=== PATIENT | male | born 1945 | race Caucasian/White ===

== ENCOUNTER 2018-08-22 10:01 | Inpatient (IN) | payer MEDICARE, OTHER ==
[2018-08-18 18:26] VITALS: BMI 33.1
[~2018-08-22] VITALS: Ht 179.1 cm; Wt 104.8 kg
[2018-08-22] VITALS (19 sets, daily range): BP systolic 95–149; BP diastolic 76–91; PULSE 62–104; RESP 12–26; Ht 179.1 cm; Wt 104.8 kg
[~2018-08-22 10:01] MED LIST: CEFAZOLIN 2 GM/50 ML (PMX) 50 ML IVPB ONE; LACTATED RINGER'S 1,000 ML IV SCH
[2018-08-22] MEDS ORDERED: METO-335 PO (10:49)
[2018-08-22] MEDS ORDERED: RIVA20TA5 PO (10:50)
[2018-08-22] MEDS ORDERED: DILT180C94 PO (10:51)
[2018-08-22] MEDS ORDERED: CHLO25TA2 PO (10:54)
[2018-08-22] MEDS ORDERED: EZET10TA31 PO (10:54)
[2018-08-22] MEDS ORDERED: ZOLP10TA5 PO (10:55)
--- NOTE | 2018-08-22 12:05 | HPN ---
Date/Time of Note Date/Time of Note DATE: 08/22/18 TIME: 12:04 Interval H&P Admission Note Pt. seen H&P reviewed: No system changes RICIKE DAHL MD Aug 22, 2018 12:05
[2018-08-22] MEDS ORDERED: BISACODYL 10 MG SUPP PR PRN (12:30)
[2018-08-22] MEDS ORDERED: ACETAMINOPHEN 325 MG TAB PO PRN (12:30)
[2018-08-22] MEDS ORDERED: CYCLOBENZAPRINE 10 MG TAB PO PRN (12:30)
[2018-08-22] MEDS ORDERED: ONDANSETRON 4 MG INJ IV PRN ×2 (12:30→19:00)
[2018-08-22] MEDS ORDERED: DIPHENHYDRAMINE 50 MG INJ IV PRN ×2 (12:30→19:00)
[2018-08-22] MEDS ORDERED: NALOXONE (0.4 MG/ML) INJ IV PRN (12:30)
[2018-08-22] MEDS ORDERED: AL HYDROX/MG HYDROX/SIMETH 30 ML CUP PO PRN (12:30)
[2018-08-22] MEDS ORDERED: DIPHENHYDRAMINE 25 MG CAP PO PRN (12:30)
[2018-08-22] MEDS ORDERED: CEPASTAT LOZENGE MT PRN (12:30)
[2018-08-22] MEDS ORDERED: HYDROmorphONE 0.5 MG/0.5 ML SYG IV PRN (12:30)
[2018-08-22] MEDS ORDERED: THROMBIN 5000 UNIT VIAL ONE ×2 (12:41→13:58)
[2018-08-22] MEDS ORDERED: BUPIVACAINE 0.5%/EPI (SDV) 30 ML INJ ONE (12:41)
[2018-08-22] MEDS ORDERED: GELATIN SIZE 100 SPONGE ONE (12:42)
[2018-08-22] MEDS ORDERED: CA CHLORIDE 10% 10 ML SYRINGE ONE (12:42)
[2018-08-22] MEDS ORDERED: HEPARIN 1000 UNITS/ML 10 ML INJ ONE ×2 (12:43→12:45)
[2018-08-22] MEDS ORDERED: POLYMYXIN/BACITRACIN 1L IRRIG ONE (12:44)
--- NOTE | 2018-08-22 12:54 | PREAC ---
Date/Time of Note Date/Time of Note DATE: 08/22/18 TIME: 12:51 Anesthesia Eval and Record Evaluation Time Pre-Procedure Interview DATE: 08/22/18 TIME: 12:51 Age 73 Sex male NPO: 8 hrs Preoperative diagnosis L4-L5 spondylolysis and stenosis Planned procedure L4-L5 decompression and fusion Past Medical History Past Medical History: Includes Cardio: HTN, Arrythmia GI: Morbid obesity Surgery & Anesthesia Issues No known issue Meds Anticoagulation: No Beta Yen within 24 hr: Yes Reported Medications Zolpidem Tartrate* (Zolpidem Tartrate*) 10 Mg Tablet, 10 MG PO QHS PRN for INSOMNIA, #30 TAB 08/22/18 Ezetimibe* (Zetia*) 10 Mg Tablet, 10 MG PO HS, TAB 08/22/18 Chlorthalidone* (Chlorthalidone*) 25 Mg Tablet, 12.5 MG PO DAILY, TAB 08/22/18 Diltiazem Hcl* (Diltiazem XT) 180 Mg Capsule.er, 180 MG PO QPM, #30 CAP 08/22/18 Rivaroxaban* (Xarelto*) 20 Mg Tablet, 20 MG PO WITH DINNER, TAB 08/22/18 Metoprolol Succinate* (Toprol XL*) 25 Mg Tab.sr.24h, 12.5 MG PO QAM, #30 TAB 08/22/18 Current Medications Lactated Ringer's 1,000 ml @ 0 mls/hr Q0M IV Last administered on 08/22/18at 11:06; Admin Dose 30 MLS/HR; Start 08/22/18 at 06:00; Stop 08/22/18 at 23:00 Potassium Chloride/Dextrose/ Sod Cl 1,000 ml @ 100 mls/hr Q10H IV ; Start 08/22/18 at 12:05 Acetaminophen/ Hydrocodone Bitart ([place] (10/325)) 1 tab Q4H PRN PO .PAIN 1-5; Start 08/25/18 at 10:00 Acetaminophen/ Hydrocodone Bitart ([place] (10/325)) 2 tab Q4H PRN PO .PAIN 6-10; Start 08/25/18 at 09:30 Hydromorphone HCl (Dilaudid) 0.2 mg Q1H PRN IV .BREAKTHROUGH PAIN; Start 08/22/18 at 12:30 Cefazolin Sodium 50 ml @ 100 mls/hr Q8H IVPB ; Start 08/22/18 at 14:00; Stop 08/23/18 at 06:29 Ondansetron HCl (Zofran Inj) 4 mg Q6H PRN IV NAUSEA/VOMITING; Start 08/22/18 at 12:30 Bisacodyl (Dulcolax Supp) 10 mg DAILY PRN MA .CONSTIPATION; Start 08/22/18 at 12:30 Docusate Sodium (Colace) 100 mg BID PO ; Start 08/22/18 at 21:00 Al Hydrox/Mg Hydrox/Simethicone (Mag-Al Plus) 15 ml Q6H PRN PO .CONSTIPAT ION/DYSPEPSIA; Start 08/22/18 at 12:30 Acetaminophen (Tylenol Tab) 650 mg Q4H PRN PO LUIS OR TEMP GREATER THAN 101.3F; Start 08/22/18 at 12:30 Cyclobenzaprine HCl (Flexeril) 5 mg TID PRN PO .MUSCLE SPASM; Start 08/22/18 at 12:30 Phenol (Cepastat Lozenge) 1 lozenge PRN PRN MT .SORE THROAT; Start 08/22/18 at 12:30 Diphenhydramine HCl (Benadryl) 25 mg Q6H PRN PO .ITCHING; Start 08/22/18 at 12:30 Diphenhydramine HCl (Benadryl) 25 mg Q6H PRN IV .ITCHING; Start 08/22/18 at 12:30 Naloxone HCl (Narcan) 0.2 mg Q2M PRN IV .RR 8 BREATHS/MIN OR LESS; Start 08/22/18 at 12:30 Hydromorphone HCl (Dilaudid SAFEKEEPING CLERK) SAFEKEEPING CLERK to be started in PACU Q4PCA IV ; Start 08/22/18 at 12:30; Status Future Hold Miscellaneous Information 1. Hold SAFEKEEPING CLERK at 1,000... SAFEKEEPING CLERK IV ; Start 08/22/18 at 12:30 Meds reviewed: Yes Allergies Coded Allergies: No Known Allergy (Unverified , 08/22/18) Allergies Reviewed: Yes Labs/Studies Labs Reviewed: Reviewed by anesthesiologist test: N/A Studies: ECG Pre-procedure Exam Last vitals Vital Signs Date Temp Pulse Resp B/P (MAP) Pulse Ox O2 O2 Flow FiO2 Time Delivery Rate 08/22/18 97.4 62 16 127/80 97 10:51 (96) Airway: Adequate mouth opening, Adequate thyromental dist Mallampati: Mallampati III Teeth: Normal Lung: Normal Heart: Normal ASA Physical Status ASA physical status: 3 Emergency: None Planned Anesthetic General/MAC: ETT Planned Pain Management Parenteral pain med, Local by surgeon Pre-operative Attestations Prior to commencing anesthesia and surgery, the patient was re-evaluated, there was verification of: *The patient's identity *The results of appropriate recent lab work and preoperative vital signs *The above evaluation not changing prior to induction *Anesthetic plan, risk benefits, alternative and complications discussed with patient/family; questions answered; patient/family understands, accepts and wishes to proceed. CAMRON VILLEGAS MD Aug 22, 2018 12:54
[2018-08-22] MEDS ORDERED: CEFAZOLIN 1 GM INJ ONE ×4 (13:00→18:23)
[2018-08-22] MEDS ORDERED: SEVOFLURANE 15 MIN ONE (13:00)
[2018-08-22] MEDS ORDERED: MIDAZOLAM 1 MG/ML 2 ML INJ ONE (13:02)
[2018-08-22] MEDS: CEFAZOLIN 1 GM/50 ML (PMX) 50 ML IVPB SCH ×2 (13:10→22:30)
[2018-08-22] MEDS ORDERED: morphine 10 MG INJ ONE (16:10)
[2018-08-22] MEDS ORDERED: ETOMIDATE 20 MG INJ ONE (18:23)
[2018-08-22] MEDS ORDERED: PROPOFOL 20 ML ONE (18:23)
[2018-08-22] MEDS ORDERED: LIDOCAINE 2% (SDV) 5 ML INJ ONE (18:23)
[2018-08-22] MEDS ORDERED: ROCURONIUM 50 MG INJ ONE (18:23)
[2018-08-22] MEDS ORDERED: ONDANSETRON 4 MG INJ ONE (18:24)
[2018-08-22] MEDS ORDERED: FUROSEMIDE 20 MG INJ ONE (18:40)
--- NOTE | 2018-08-22 18:52 | SIPON ---
Date/Time of Note Date/Time of Note DATE: 08/22/18 TIME: 18:51 Operative Report Preoperative Diagnosis Spondylolisthesis Postoperative Diagnosis Spondylolisthesis Operation/Procedure Performed L4-5 fusion Surgeon see signature line assistant manager airside operations Wilfredo Anesthesia: general Estimated blood loss: 250 - 300 ml's Transfusion Required none Specimen Disc Grafts/Implants Cage and screws Complications none RICKIE DAHL MD Aug 22, 2018 18:52
[2018-08-22] MEDS ORDERED: HYDROmorphONE 1 MG/5 ML IV SYRINGE IV PRN ×2 (19:00)
[2018-08-22] MEDS ORDERED: LABETALOL HCL 20MG INJ IV PRN (19:00)
[2018-08-22] MEDS ORDERED: hydrALAzine 20 MG INJ IV PRN (19:00)
[2018-08-22] MEDS ORDERED: METOCLOPRAMIDE 10 MG INJ IV PRN (19:00)
[2018-08-22] MEDS ORDERED: MEPERIDINE 25 MG INJ IV PRN (19:00)
--- NOTE | 2018-08-22 19:00 | PAC ---
Date/Time of Note Date/Time of Note DATE: 08/22/18 TIME: 19:00 Post-Anesthesia Notes Post-Anesthesia Note Last documented vital signs Vital Signs Date Temp Pulse Resp B/P (MAP) Pulse Ox O2 O2 Flow FiO2 Time Delivery Rate 08/22/18 97.4 62 16 127/80 97 10:51 (96) Activity: WNL Respiratory function: WNL Cardiovascular function: WNL Mental status: Baseline Pain reasonably controlled: Yes Hydration appropriate: Yes Nausea/Vomiting absent: Yes Comments BP:118/67, P:92, Spo2:100%, T:98,8 CAMRON VILLEGAS MD Aug 22, 2018 19:00
[2018-08-22] MEDS: HYDROmorphONE 0.2 MG/ML PCA IV SCH (19:18)
[2018-08-22] MEDS: FENTAnyl 50 MCG/ML VIAL IV PRN ×3 (19:27→22:34)
[2018-08-22] MEDS ORDERED: ZOLPIDEM 5 MG TAB PO PRN (19:30)
--- NOTE | 2018-08-22 19:49 | OPR ---
DATE OF OPERATION: 08/22/2018 PREOPERATIVE DIAGNOSES: Unstable L4-L5 degenerative spondylolisthesis and stenosis with radiculopathy and neurogenic claudication. POSTOPERATIVE DIAGNOSES: Unstable L4-L5 degenerative spondylolisthesis and stenosis with radiculopathy and neurogenic claudication. PROCEDURE: 1. Central decompressive laminectomy at L4-L5 with decompression of L4 and L5 nerve roots. 2. Placement of pedicle screws bilaterally at L4 and L5. 3. Carty-Pérez osteotomies bilaterally at L4-5 bilaterally. 4. Transforaminal lumbar interbody fusion at L4-L5. 5. Placement of intervertebral mechanical device. 6. Posterolateral fusion at L4-L5. 7. Use of allograft. 8. Use of autograft. 9. Use of C-arm fluoroscopy with interpretation without radiologist present. 10. Intraoperative neuromonitoring. 11. Use of operative microscope. PRIMARY SURGEON: Bahman Milan MD. SERVICENOW ADMINISTRATOR: Sharona Villalobos PA-C. NEED FOR GRINDER OPERATOR AUTOMATIC: During this spinal surgical procedure, my assistant professor of theater was used to retract and protect the spinal nerves and dural sac. My assistant professor of theater also employed the suction catheters to evacuate blood from the surgical field to improve visualization of the neural structures. The assistant professor of theater was medically necessary to facilitate the completion of the surgery in a safe and expeditious manner. State of [place] regulations, as well as hospital bylaws, preclude the use of non-licensed health care personnel, such as operating room technicians, to perform these functions. IMPLANTS: 1. Neurostructure Palladian 6.5 x 55 mm pedicle screws at L4 and L5 bilaterally with 50 mm colby. 2. Nexxt Matrixx 10 mm banana cage. 3. BioSphere. FINDINGS: Neuromonitoring at the start of the case revealed left L4 amplitude down 30%, bilateral L5 down 40%. At the end of the case, nerve signals returned to normal. The patient had severe stenosis at the L4-L5 level due to facet and ligamentum hypertrophy. The patient's bone was extremely sclerotic as described below. ESTIMATED BLOOD LOSS: 300 mL. DRAINS: One. SPECIMENS: L4-L5 disk. COMPLICATIONS OF PROCEDURES: See below. ANESTHESIOLOGIST: Tommy Hooks MD. TYPE OF ANESTHESIA: General. INDICATIONS FOR PROCEDURE: This is a 73-year-old gentleman with unstable degenerative spondylolisthesis at the L4-L5 level. This resulted in stenosis and neurogenic claudication. Given failure of nonoperative measures, I have recommended he undergo the above procedure. Preoperatively, we discussed risks, benefits and alternatives. He understood and wished to proceed. DESCRIPTION OF PROCEDURE IN DETAIL: The patient was identified in the preoperative holding area, given Ancef antibiotic, taken to the operating room, where he was successfully placed under general anesthesia. Neuromonitoring leads were placed. Sequential compressive devices were applied. Grimes catheter introduced. Remote intraoperative neuromonitoring was performed by Dr. Castro from 1:00 o'clock until 6:45 p.m. to include SSEP, MEP, and EMG performed by Viddsee. The patient was placed on the operating table in prone position over a Sage frame. All bony prominences were padded. The back was then prepped and draped in the usual sterile fashion. Using the sterile fluoroscope, I identified the incision site. I anesthetized skin with Marcaine and epinephrine. Incision was then made over the L4-5 level. Incision was taken down to dorsal fascia, which was incised with Bovie cautery. I then subperiosteally dissected the L4 and L5 lamina out to the transverse processes. The patient had significant overgrowth of the facet joints. Once identified the correct levels, I proceeded to perform the pedicle screws. The patient's bone was extremely sclerotic and hard. I used a rongeur to remove some of the cortex, but even below this, it was all cortical bone. I had to use a bur for the police pilot hole for the pedicle screws. Even the bur was causing smoke due to the sclerosis of the bone. The sclerotic bone altered the field and added significantly more time to the surgery. This added at least 1 hour of the surgery. This will be the last screw to be placed was the right S1 screw, and when placing the Lenke probe, the shaft of the probe broke within the bone. I spent quite a bit of time trying to remove this with vise-wardrobe image consultant unsuccessfully. I then took the Lenke probes and passed them around the broken Lenke probe in order to finally free this up. Once I did so, I was able to place a new Lenke probe to continue the pedicle start site. I then placed the appropriate size pedicle screw at this level as well. Once all the screws were in place, I stimulated each of the screws and there was no evidence of cortical breach. Microscope was then brought in and a central decompressive laminectomy was performed at the L4-L5 level. Again, the bone was extremely hard. Essentially, all sclerotic bone. I used a bur in order to thin the bone, and again this caused smoked and was quite hard to actually bur through the bone. I therefore had to use a rongeur and a Kerrison punch and I was ultimately able to decompress the central canal and removed the ligamentum flavum. I decompressed the lateral recess. I decompressed the L4 and L5 nerve roots. This was done in order to alleviate the stenosis with neurogenic claudication beyond performance of the interbody fusion. I then performed Carty-Pérez osteotomies bilaterally with removal of the pars and the facets in order to mobilize the level to reduce the spondylolisthesis. I then made an annulotomy on the left side followed by radical diskectomy. I placed various trials and chose the appropriate graft height. I then took the titanium cage within which I placed allograft and I impacted an intervertebral mechanical device into the L4-L5 level. Additional, I placed autograft and allograft into the disk space to complete the transforaminal lumbar interbody fusion at this level. The retractors were removed and let down the Sage frame. I took imaging studies and I was happy with placement of the hardware and alignment of the spine. I then placed the appropriate size colby with set screws. I compressed across the pedicle screws and tightened the set screws per dress shoe inspector's specifications. I then irrigated the wound. I prepared the posterolateral gutters where I placed autograft and allograft for posterolateral fusion at L4-L5. I then placed a deep subfascial drain. I injected PPP and thrombin over the dura for hemostatic purposes. I closed deep fascia with #1 Stratafix suture. I then closed subcutaneous tissue with a 2-0 Vicryl stitch. A 4-0 Monocryl closure was then performed. Dermabond and sterile dressing was then applied. The patient was awakened from anesthesia and taken to the recovery room in stable condition. Lap, sponge, and instrument counts were correct x2. There were no apparent complications during the procedure. The patient will be admitted to the [facility] for routine postoperative care to include pain control, neurovascular checks, antibiotics, and physical therapy. At the end of the case, all nerve signals returned to normal. Dictated By: BAHMAN GARCIA/MILLY Conf#: [id number] DID#: [id number] CC: COLE DE LA TORRE MD;*EndCC* MTDD
--- NOTE | 2018-08-22 20:23 | CONS ---
DATE OF ADMISSION: 08/22/2018 DATE OF CONSULTATION: TYPE OF CONSULTATION: Medical. Thank you, Dr. Milan, for asking me to participate in medical management of this patient. REASON FOR CONSULTATION: To manage the patient's atrial fibrillation, hyperlipidemia and sleep apnea . HISTORY OF PRESENT ILLNESS: This 73-year-old man is now in the recovery room after undergoing a lumb ar spine surgery by Dr. Milan. The patient is awake and alert. He does have some low back pain and is being medicated. The patient preoperatively had spondylolisthesis with neurogenic claudicatio n. He underwent an L4-L5 fusion. The patient tells me that he is on Xarelto 20 mg a day for atrial fibrillation. The medication was discontinued preoperatively in preparation for this surgery. OTHER PAST MEDICAL HISTORY: Includes hemorrhoids, sleep apnea, abdominal aneurysm, atrial fibrillati on, fatty liver, coronary artery disease, sleep apnea and uses CPAP machine. PAST SURGICAL HISTORY: Previous surgeries have included gallbladder removal, cholecystectomy, cardia c stent placement, T and A and rotator cuff repair. CURRENT MEDICATIONS: Include the followin. Diltiazem 180 mg extended release daily. 2. Zetia 10 mg a day. 3. Toprol-XL 12.5 mg a day. 4. Zolpidem tartrate 10 mg at bedtime for sleep. 5. Chlorthalidone 12.5 mg daily. ALLERGIES: HE HAS NO KNOWN DRUG ALLERGIES. SOCIAL HISTORY: He is retired from the [employer], , drinks alcohol daily and does not smoke. FAMILY HISTORY: Remarkable for diabetes mellitus, lung cancer, aneurysm and heart disease. PHYSICAL EXAMINATION: GENERAL: At this time reveals an obese man in no apparent distress. VITAL SIGNS: Temperature 98.8, pulse 96, respirations 23, blood pressure 149/88, O2 saturation of 94 % on 2 liter nasal cannula. HEENT: Head normocephalic. Eyes: Periorbital area is puffy. Eyes: Extraocular muscles intact. N ose and mouth are normal. NECK: Supple, no neck vein distention. LUNGS: Clear to auscultation. HEART: Irregularly irregular rhythm. No murmurs, gallops or rubs. ABDOMEN: Soft, nontender, no masses or megaly. EXTREMITIES: No peripheral edema. IMPRESSION: This patient is now postop a lumbar spine surgery. He is coming out of anesthesia. He does respond to verbal stimuli and answers questions. I will manage the patient's atrial fibrillatio n, hypertension, hyperlipidemia and sleep apnea. PLAN: 1. Resume routine medications except for Xarelto. 2. Check labs in the morning. 3. Use CPAP tonight and nightly, check labs in the morning. 4. Postop lumbar spine surgery protocol. 5. I will follow the patient along with you. Dictated By: ANAMARIA JEAN MD, ND/MILLY Conf#: [id number] DID#: [id number] CC: RICKIE MILAN MD;*End*
[2018-08-22] MEDS: DILTIAZEM (CD) 180 MG CAP PO SCH ×2 (21:00→22:33)
[2018-08-22] MEDS: EZETIMIBE 10 MG TAB PO SCH ×2 (21:00→22:33)
[2018-08-22] MEDS: DOCUSATE SODIUM 100 MG CAP PO SCH ×2 (21:00→22:33)
[2018-08-22] MEDS: D5W-0.45 NACL + KCL 20 MEQ 1,000 ML IV SCH ×2 (22:05→22:29)
[2018-08-23 00:15] VITALS: BP 141/81; PULSE 86; RESP 18
[2018-08-23 02:00] VITALS: BP 138/80; PULSE 96; RESP 16
[2018-08-23] MEDS: CEFAZOLIN 1 GM/50 ML (PMX) 50 ML IVPB SCH (05:09)
[2018-08-23 07:14] VITALS: BP 123/86; PULSE 108; RESP 16
[2018-08-23] MEDS: D5W-0.45 NACL + KCL 20 MEQ 1,000 ML IV SCH ×2 (07:58→10:10)
[2018-08-23] MEDS: METOPROLOL (XL) 25 MG TAB PO SCH (08:52)
[2018-08-23] MEDS: DOCUSATE SODIUM 100 MG CAP PO SCH ×2 (08:52→21:10)
--- NOTE | 2018-08-23 09:17 | CONS ---
Assessment/Plan Assessment/Plan Hospital Course (Demo Recall) Impression: - post op lumbar surgery - chronic afib- rate controlled, holding anticoag periop - h/o cad s/p remote pci- no current symptoms - h/o AAA- stable reports 4.1cm following with primary cardiolgist - [facility] using cpap Recommendations: - cont dilt cd 180mg daily - cont metop xl 12.5mg daily - follow vitals - ? not on statin, will need follow up with primary bag printer - pain control per surgery - restart anticoag when safe from surgical postop perspective Consultation Date/Type/Reason Admit Date/Time Aug 22, 2018 at 10:01 Date of Consultation: Aug 23, 2018 Type of Consult cardiology Reason for Consultation afib Requesting Provider: ANAMARIA JEAN MD Date/Time of Note DATE: 08/23/18 TIME: 09:06 Hx of Present Illness 73 y.o. with h/o of chronic afib on anticoag as outpt, cad s/p pci, [facility] AAA around 4.1cm. Pt admitted for lumbar spine surgery by Dr. Milan. Pt reports having pain, le numbness fo some time. He lives in [place] and sees local bag printer there. He states he has had close follow up for his cardiac issues. Denies any chest pain, palpitations, pnd, orhtopnea, edema. uses cpap at night. states he does have chornic sob, but activity limited by back pain. pt takes cardizem and xarelto for afib. xarelto held periop. Pt states has had recent echo/stress testing and no abnormalities per his report, records are not available. currently he is doing well post op. still with back pain post op, controlled. working a little with PT this am. no cp/sob/palpitaitons. hr is controlled 90s- 100s Constitutional: No no complaints, No improved, No chills, No diaphoresis, No disoriented, No febrile, No poor po, No requiring IVF, No requiring O2, No other Eyes: No no complaints, No pain, No discharge, No redness, No visual change, No other ENT: pain Respiratory: shortness of breath Cardiovascular: No no complaints, No chest pain, No edema, No lightheadedness, No orthopenea, No palpitations, No paroxysmal nocturnal dyspnea, No other Gastrointestinal: No no complaints, No pain, No blood, No constipation, No decreased appetite, No diarrhea, No flatus, No nausea, No passing stool, No vomiting, No other Genitourinary: No no complaints, No bleeding, No dysuria, No discharge, No flank pain, No hematuria, No other Musculoskeletal: back pain Skin: No no complaints, No bruising, No erythema, No laceration, No pruritis, No rash, No skin lesions, No other Neurologic: No no complaints, No confusion, No dizziness, No focal-weakness, No headache, No syncope, No seizure, No other Psychological: no complaints, nl mood/affect; No anxiety, No confusion, No depression, No suicidal, No other Immunologic: No no complaints, No immunodeficiency, No pruritis, No rhinitis, No urticaria, No other Past Medical History Includes hemorrhoids, sleep apnea, abdominal aneurysm, atrial fibrillation, fatty liver, coronary artery disease, sleep apnea and uses CPAP machine. Home Meds Reported Medications Zolpidem Tartrate* (Zolpidem Tartrate*) 10 Mg Tablet, 10 MG PO QHS PRN for INSOM POLA, #30 TAB 08/22/18 Ezetimibe* (Zetia*) 10 Mg Tablet, 10 MG PO HS, TAB 08/22/18 Chlorthalidone* (Chlorthalidone*) 25 Mg Tablet, 12.5 MG PO DAILY, TAB 08/22/18 Diltiazem Hcl* (Diltiazem XT) 180 Mg Capsule.er, 180 MG PO QPM, #30 CAP 08/22/18 Rivaroxaban* (Xarelto*) 20 Mg Tablet, 20 MG PO WITH DINNER, TAB 08/22/18 Metoprolol Succinate* (Toprol XL*) 25 Mg Tab.sr.24h, 12.5 MG PO QAM, #30 TAB 08/22/18 Medications Current Medications Potassium Chloride/Dextrose/ Sod Cl 1,000 ml @ 100 mls/hr Q10H IV Last administered on 08/22/18at 22:29; Admin Dose 100 MLS/HR; Start 08/22/18 at 12:05 Acetaminophen/ Hydrocodone Bitart ([place] (10/325)) 1 tab Q4H PRN PO .PAIN 1-5; Start 08/25/18 at 10:00 Acetaminophen/ Hydrocodone Bitart ([place] (10)) 2 tab Q4H PRN PO .PAIN 6-10; Start 08/25/18 at 09:30 Hydromorphone HCl (Dilaudid) 0.2 mg Q1H PRN IV .BREAKTHROUGH PAIN; Start 08/22/18 at 12:30 Ondansetron HCl (Zofran Inj) 4 mg Q6H PRN IV NAUSEA/VOMITING; Start 08/22/18 at 12:30 Bisacodyl (Dulcolax Supp) 10 mg DAILY PRN [place] .CONSTIPATION; Start 08/22/18 at 12:30 Docusate Sodium (Colace) 100 mg BID PO Last administered on 08/23/18at 08:52; Admin Dose 100 MG; Start 08/22/18 at 21:00 Al Hydrox/Mg Hydrox/Simethicone (Mag-Al Plus) 15 ml Q6H PRN PO .CONSTIPATION/DYSPEPSIA; Start 08/22/18 at 12:30 Acetaminophen (Tylenol Tab) 650 mg Q4H PRN PO LUIS OR TEMP GREATER THAN 101.3F; Start 08/22/18 at 12:30 Cyclobenzaprine HCl (Flexeril) 5 mg TID PRN PO .MUSCLE SPASM; Start 08/22/18 at 12:30 Phenol (Cepastat Lozenge) 1 lozenge PRN PRN [place] .SORE THROAT; Start 08/22/18 at 12:30 Diphenhydramine HCl (Benadryl) 25 mg Q6H PRN PO .ITCHING; Start 08/22/18 at 12:30 Diphenhydramine HCl (Benadryl) 25 mg Q6H PRN IV .ITCHING; Start 08/22/18 at 12:30 Naloxone HCl (Narcan) 0.2 mg Q2M PRN IV .RR 8 BREATHS/MIN OR LESS; Start 08/22/18 at 12:30 Hydromorphone HCl (Dilaudid DIRECTOR MERIT SYSTEM) DIRECTOR MERIT SYSTEM to be started in PACU Q4PCA IV Last administered on 08/22/18at 19:18; Admin Dose 6 MG; Start 08/22/18 at 12:30; Status Future Hold Miscellaneous Information 1. Hold DIRECTOR MERIT SYSTEM at 1,000... DIRECTOR MERIT SYSTEM IV ; Start 08/22/18 at 12:3 0 Diltiazem HCl (Cardizem Cd) 180 mg QPM PO Last administered on 08/22/18at 22:33; Admin Dose 180 MG; Start 08/22/18 at 21:00 EZETIMIBE (Zetia) 10 mg HS PO Last administered on 08/22/18at 22:33; Admin Dose 10 MG; Start 08/22/18 at 21:00 Metoprolol Succinate (Toprol Xl) 12.5 mg QAM PO Last administered on 08/23/18at 08:52; Admin Dose 12.5 MG; Start 08/23/18 at 09:00 Zolpidem Tartrate (Ambien) 10 mg QHS PRN PO INSOMNIA; Start 08/22/18 at 19:30 Allergies: Coded Allergies: No Known Allergy (Unverified , 08/22/18) Past Surgical History gallbladder removal, cholecystectomy, cardiac stent placement, T and A and rotator cuff repair. Family History Significant Family History: other (diabetes mellitus, lung cancer, aneurysm and heart disease.) Social History Alcohol Use: none Smoking Status: Former smoker Drug Use: none Exam/Review of Systems Exam Vitals Vital Signs Date Temp Pulse Resp B/P (MAP) Pulse Ox O2 O2 Flow FiO2 Time Delivery Rate 08/23/18 99.1 108 16 123/86 95 Nasal 2.0 07:14 (98) Cannula Intake and Output 08/22/18 08/22/18 08/23/18 1515:00 23:00 07:00 IntakeIntake Total 3070 ml 900 ml OutputOutput Total 1150 ml 190 ml BalanceBalance 1920 ml 710 ml Constitutional: alert, oriented, well developed Psych: no complaints, nl mood/affect Head: normocephalic, atraumatic Eyes: nl conjunctiva, EOMI, nl lids ENMT: nl external ears & nose, nl nasal mucosa & septum, mucosa pink and moist Neck: supple, non-tender; No jvd, No bruits Respiratory: clear to auscultation, normal air movement Cardiovascular: nl pulses, irregular rhythm, systolic murmur (ii/vi llsb); No bruits, No diastolic murmur, No edema Gastrointestinal: soft Musculoskeletal: nl extremities to inspection, nl gait and stance, other (varicose vein) Extremities: normal pulses Neurological: DOUGHNUT MAKER II-XII intact, nl mental status, nl speech, nl strength Skin: nl turgor Results Result Diagram: 08/23/18 0431 08/23/18 0431 Results 24hrs Laboratory Tests Test 08/23/18 04:31 08/23/18 07:29 White Blood Count 11.4 H Red Blood Count 4.32 L Hemoglobin 12.6 L Hematocrit 38.1 L Mean Corpuscular Volume 88.2 Mean Corpuscular Hemoglobin 29.2 Mean Corpuscular Hemoglobin Concent 33.1 Red Cell Distribution Width 14.8 H Platelet Count 296 Mean Platelet Volume 10.0 Immature Granulocytes % 0.300 Neutrophils % 74.0 Lymphocytes % 16.5 Monocytes % 7.2 Eosinophils % 1.4 Basophils % 0.6 Nucleated Red Blood Cells % 0.0 Immature Granulocytes # 0.030 Neutrophils # 8.5 H Lymphocytes # 1.9 Monocytes # 0.8 Eosinophils # 0.2 Basophils # 0.1 Nucleated Red Blood Cells # 0.0 Sodium Level 140 Potassium Level 3.6 Chloride Level 105 Carbon Dioxide Level 28 Anion Gap 7 Blood Urea Nitrogen 16 Creatinine 0.75 Est Glomerular Filtrat Rate mL/min Glucose Level 94 Calcium Level 7.8 L Magnesium Level 1.7 Lab Scanned Report REFERENCE LAB Imaging Imaging EKG: preop afib, rate controlled, rbbb cxr report reviewed in emr Medications Medication Current Medications Potassium Chloride/Dextrose/ Sod Cl 1,000 ml @ 100 mls/hr Q10H IV Last administered on 08/22/18at 22:29; Admin Dose 100 MLS/HR; Start 08/22/18 at 12:05 Acetaminophen/ Hydrocodone Bitart ([place] (10/325)) 1 tab Q4H PRN PO .PAIN 1-5; Start 08/25/18 at 10:00 Acetaminophen/ Hydrocodone Bitart ([place] (10/325)) 2 tab Q4H PRN PO .PAIN 6-10; Start 08/25/18 at 09:30 Hydromorphone HCl (Dilaudid) 0.2 mg Q1H PRN IV .BREAKTHROUGH PAIN; Start 08/22/18 at 12:30 Ondansetron HCl (Zofran Inj) 4 mg Q6H PRN IV NAUSEA/VOMITING; Start 08/22/18 at 12:30 Bisacodyl (Dulcolax Supp) 10 mg DAILY PRN [place] .CONSTIPATION; Start 08/22/18 at 12:30 Docusate Sodium (Colace) 100 mg BID PO Last administered on 08/23/18 08:52; Admin Dose 100 MG; Start 08/22/18 at 21:00 Al Hydrox/Mg Hydrox/Simethicone (Mag-Al Plus) 15 ml Q6H PRN PO .CONSTIPATION/DYSPEPSIA; Start 08/22/18 at 12:30 Acetaminophen (Tylenol Tab) 650 mg Q4H PRN PO LUIS OR TEMP GREATER THAN 101.3F; Start 08/22/18 at 12:30 Cyclobenzaprine HCl (Flexeril) 5 mg TID PRN PO .MUSCLE SPASM; Start 08/22/18 at 12:30 Phenol (Cepastat Lozenge) 1 lozenge PRN PRN [place] .SORE THROAT; Start 08/22/18 at 12:30 Diphenhydramine HCl (Benadryl) 25 mg Q6H PRN PO .ITCHING; Start 08/22/18 at 12:30 Diphenhydramine HCl (Benadryl) 25 mg Q6H PRN IV .ITCHING; Start 08/22/18 at 12:30 Naloxone HCl (Narcan) 0.2 mg Q2M PRN IV .RR 8 BREATHS/MIN OR LESS; Start 08/22/18 at 12:30 Hydromorphone HCl (Dilaudid DIRECTOR MERIT SYSTEM) DIRECTOR MERIT SYSTEM to be started in PACU Q4PCA IV Last administered on 08/22/18at 19:18; Admin Dose 6 MG; Start 08/22/18 at 12:30; Status Future Hold Miscellaneous Information 1. Hold DIRECTOR MERIT SYSTEM at 1,000... DIRECTOR MERIT SYSTEM IV ; Start 08/22/18 at 12 :30 Diltiazem HCl (Cardizem Cd) 180 mg QPM PO Last administered on 08/22/18at 22:33; Admin Dose 180 MG; Start 08/22/18 at 21:00 EZETIMIBE (Zetia) 10 mg HS PO Last administered on 08/22/18at 22:33; Admin Dose 10 MG; Start 08/22/18 at 21:00 Metoprolol Succinate (Toprol Xl) 12.5 mg QAM PO Last administered on 08/23/18at 08:52; Admin Dose 12.5 MG; Start 08/23/18 at 09:00 Zolpidem Tartrate (Ambien) 10 mg QHS PRN PO INSOMNIA; Start 08/22/18 at 19:30 NORMA BRITT Aug 23, 2018 09:16
[2018-08-23] MEDS: LIDOCAINE 2% VISC 15 ML CUP TOP PRN (12:14)
--- NOTE | 2018-08-23 12:16 | PN ---
Date/Time of Note Date/Time of Note DATE: 08/23/18 TIME: 12:14 Assessment/Plan Lines/Catheters IV Catheter Type (from Nrsg): Peripheral IV Grimes in Place (from Nrsg): Yes Assessment/Plan Assessment/Plan POD #1 s/p lumbar fusion pain control ambulate, PT continue routine care Subjective 24 Hr Interval Summary c/o LBP Exam/Review of Systems Vital Signs Vitals Vital Signs Date Temp Pulse Resp B/P (MAP) Pulse Ox O2 O2 Flow FiO2 Time Delivery Rate 08/23/18 Nasal 2.0 09:00 Cannula 08/23/18 18 09:00 08/23/18 99.1 108 123/86 95 07:14 (98) Intake and Output 08/22/18 08/22/18 08/23/18 1515:00 23:00 07:00 IntakeIntake Total 3070 ml 900 ml OutputOutput Total 1150 ml 190 ml BalanceBalance 1920 ml 710 ml Exam Free Text/Dictation AOx3 comfortable drain output 180cc/24 hours dressing C/D/I labs reviewed HR 108 exam unchanged Results Result Diagram: 08/23/18 0431 08/23/18 0431 TAWANNA MIJARES PA-C Aug 23, 2018 12:16
--- NOTE | 2018-08-23 12:28 | CONS ---
Assessment/Plan Assessment/Plan Hospital Course (Demo Recall) 1. Mook is now 1 day postop a lumbar spine surgery. His vital signs are stable and he is afebrile. His laboratory tests are acceptable. 2. He has a history of atrial fibrillation. He is in a controlled rate. He was on Xarelto preoperatively but is being held now. He will resume his Xarelto when okay with orthopedic surgery. Patient was seen by tetryl wringer operator, Dr. Moon this morning. 3. He has a history of an abdominal aortic aneurysm that is 4.1 cm in diameter. 4. He can start physical therapy as tolerated. Consultation Date/Type/Reason Admit Date/Time Aug 22, 2018 at 10:01 Initial Consult Date 08/23/18 Requesting Provider: ANAMARIA JEAN MD Date/Time of Note DATE: 08/23/18 TIME: 12:24 24 HR Interval Summary Free Text/Dictation Mook is now 1 day postop a lumbar spine surgery. He is awake and alert. He is complaining of some lower lip pain probably due to the endotracheal tube during surgery. He otherwise denies chest pain or shortness of breath. Exam/Review of Systems Exam Vitals Vital Signs Date Temp Pulse Resp B/P (MAP) Pulse Ox O2 O2 Flow FiO2 Time Delivery Rate 08/23/18 Nasal 2.0 09:00 Cannula 08/23/18 18 09:00 08/23/18 99.1 108 123/86 95 07:14 (98) Intake and Output 08/22/18 08/22/18 08/23/18 1515:00 23:00 07:00 IntakeIntake Total 3070 ml 900 ml OutputOutput Total 1150 ml 190 ml BalanceBalance 1920 ml 710 ml Exam He has some ulcerated area on the lower lip. Constitutional: alert, oriented, well developed Respiratory: clear to auscultation, normal air movement Cardiovascular: irregular rhythm Gastrointestinal: soft, non-tender Musculoskeletal: nl extremities to inspection Results Result Diagram: 08/23/18 0431 08/23/18 0431 Results 24hrs Laboratory Tests Test 08/23/18 04:31 08/23/18 07:29 White Blood Count 11.4 H Red Blood Count 4.32 L Hemoglobin 12.6 L Hematocrit 38.1 L Mean Corpuscular Volume 88.2 Mean Corpuscular Hemoglobin 29.2 Mean Corpuscular Hemoglobin Concent 33.1 Red Cell Distribution Width 14.8 H Platelet Count 296 Mean Platelet Volume 10.0 Immature Granulocytes % 0.300 Neutrophils % 74.0 Lymphocytes % 16.5 Monocytes % 7.2 Eosinophils % 1.4 Basophils % 0.6 Nucleated Red Blood Cells % 0.0 Immature Granulocytes # 0.030 Neutrophils # 8.5 H Lymphocytes # 1.9 Monocytes # 0.8 Eosinophils # 0.2 Basophils # 0.1 Nucleated Red Blood Cells # 0.0 Sodium Level 140 Potassium Level 3.6 Chloride Level 105 Carbon Dioxide Level 28 Anion Gap 7 Blood Urea Nitrogen 16 Creatinine 0.75 Est Glomerular Filtrat Rate mL/min Glucose Level 94 Calcium Level 7.8 L Magnesium Level 1.7 Lab Scanned Report REFERENCE LAB Medications Medication Current Medications Potassium Chloride/Dextrose/ Sod Cl 1,000 ml @ 100 mls/hr Q10H IV Last administered on 08/23/18at 10:10; Admin Dose 100 MLS/HR; Start 08/22/18 at 12:05 Acetaminophen/ Hydrocodone Bitart ([place] (10/325)) 1 tab Q4H PRN PO .PAIN 1-5; Start 08/25/18 at 10:00 Acetaminophen/ Hydrocodone Bitart ([place] (10/325)) 2 tab Q4H PRN PO .PAIN 6-10; Start 08/25/18 at 09:30 Hydromorphone HCl (Dilaudid) 0.2 mg Q1H PRN IV .BREAKTHROUGH PAIN; Start 08/22/18 at 12:30 Ondansetron HCl (Zofran Inj) 4 mg Q6H PRN IV NAUSEA/VOMITING; Start 08/22/18 at 12:30 Bisacodyl (Dulcolax Supp) 10 mg DAILY PRN [place] .CONSTIPATION; Start 08/22/18 at 12:30 Docusate Sodium (Colace) 100 mg BID PO Last administered on 08/23/18at 08:52; Admin Dose 100 MG; Start 08/22/18 at 21:00 Al Hydrox/Mg Hydrox/Simethicone (Mag-Al Plus) 15 ml Q6H PRN PO .CONSTIPATION/DYSPEPSIA; Start 08/22/18 at 12:30 Acetaminophen (Tylenol Tab) 650 mg Q4H PRN PO LUIS OR TEMP GREATER THAN 101.3F; Start 08/22/18 at 12:30 Cyclobenzaprine HCl (Flexeril) 5 mg TID PRN PO .MUSCLE SPASM; Start 08/22/18 at 12:30 Phenol (Cepastat Lozenge) 1 lozenge PRN PRN [place] .SORE THROAT; Start 08/22/18 at 12:30 Diphenhydramine HCl (Benadryl) 25 mg Q6H PRN PO .ITCHING; Start 08/22/18 at 12:30 Diphenhydramine HCl (Benadryl) 25 mg Q6H PRN IV .ITCHING; Start 08/22/18 at 12:30 Naloxone HCl (Narcan) 0.2 mg Q2M PRN IV .RR 8 BREATHS/MIN OR LESS; Start 08/22/18 at 12:30 Hydromorphone HCl (Dilaudid INSPECTION MANAGER) INSPECTION MANAGER to be started in PACU Q4PCA IV Last administered on 08/22/18 19:18; Admin Dose 6 MG; Start 08/22/18 at 12:30; Status Future Hold Miscellaneous Information 1. Hold INSPECTION MANAGER at 1,000... INSPECTION MANAGER IV ; Start 08/22/18 at 12: 30 Diltiazem HCl (Cardizem Cd) 180 mg QPM PO Last administered on 08/22/18 22:33; Admin Dose 180 MG; Start 08/22/18 at 21:00 EZETIMIBE (Zetia) 10 mg HS PO Last administered on 08/22/18 22:33; Admin Dose 10 MG; Start 08/22/18 at 21:00 Metoprolol Succinate (Toprol Xl) 12.5 mg QAM PO Last administered on 08/23/18at 08:52; Admin Dose 12.5 MG; Start 08/23/18 at 09:00 Zolpidem Tartrate (Ambien) 10 mg QHS PRN PO INSOMNIA; Start 08/22/18 at 19:30 Lidocaine (Xylocaine (Viscous)) 5 ml Q4 PRN TOP LIP SORENESS/LIP PAIN Last administered on 08/23/18 12:14; Admin Dose 5 ML; Start 08/23/18 at 11:30 ANAMARIA JEAN MD Aug 23, 2018 12:28
[2018-08-23] MEDS ORDERED: MAGNESIUM SULFATE 2 GM/50 ML 50 ML IVPB ONE (12:30)
[2018-08-23 13:45] VITALS: BP 142/81; PULSE 90; RESP 19
[2018-08-23] MEDS: HYDROmorphONE 0.2 MG/ML PCA IV SCH (16:53)
[2018-08-23 20:30] VITALS: BP 117/75; PULSE 116; RESP 18
[2018-08-23] MEDS: EZETIMIBE 10 MG TAB PO SCH (21:10)
[2018-08-23] MEDS: DILTIAZEM (CD) 180 MG CAP PO SCH (21:10)
[2018-08-24] MEDS ORDERED: DILTIAZEM (CD) 120 MG CAP PO ONE (00:30)
[2018-08-24 00:43] VITALS: BP 130/76; PULSE 104
[2018-08-24 01:53] VITALS: BP 126/75; PULSE 104; RESP 18
[2018-08-24] MEDS: HYDROmorphONE 0.2 MG/ML PCA IV SCH (03:05)
[2018-08-24] MEDS: LIDOCAINE 2% VISC 15 ML CUP TOP PRN ×2 (03:28→09:21)
[2018-08-24] MEDS: D5W-0.45 NACL + KCL 20 MEQ 1,000 ML IV SCH (04:05)
[2018-08-24 07:52] VITALS: BP 130/82; PULSE 95; RESP 20
--- NOTE | 2018-08-24 08:06 | PN ---
Date/Time of Note Date/Time of Note DATE: 08/24/18 TIME: 08:05 Assessment/Plan Lines/Catheters IV Catheter Type (from Nrsg): Peripheral IV Grimes in Place (from Nrsg): Yes Assessment/Plan Assessment/Plan Patient continues to improve. Will discontinue STEEL FITTER and Grimes today. Will remove drain later today. Continue with physical therapy. Patient is using Chapstick for his lips which is helping. Subjective 24 Hr Interval Summary Mild low back pain Exam/Review of Systems Vital Signs Vitals Vital Signs Date Temp Pulse Resp B/P (MAP) Pulse Ox O2 O2 Flow FiO2 Time Delivery Rate 08/24/18 98.0 95 20 130/82 95 Nasal 07:52 (98) Cannula 08/23/18 2.0 20:00 Intake and Output 08/23/18 08/23/18 08/24/18 1515:00 23:00 07:00 IntakeIntake Total 350 ml 900 ml 740 ml OutputOutput Total 330 ml 1300 ml BalanceBalance 350 ml 570 ml -560 ml Exam Free Text/Dictation Neuro intact Results Result Diagram: 08/24/18 0443 08/24/18 0443 RICKIE DAHL MD Aug 24, 2018 08:06
[2018-08-24] MEDS: METOPROLOL (XL) 25 MG TAB PO SCH (09:15)
[2018-08-24] MEDS: DOCUSATE SODIUM 100 MG CAP PO SCH ×2 (09:48→20:56)
[2018-08-24] MEDS ORDERED: HYDROCODONE/APAP (10/325) TAB PO ONE (10:30)
[2018-08-24] MEDS ORDERED: HYDROCODONE/APAP (10/325) TAB PO PRN (13:00)
[2018-08-24] MEDS ORDERED: LIDOCAINE 4% SOLUTION 50 ML BTL TOP PRN (13:30)
--- NOTE | 2018-08-24 13:34 | CONS ---
Assessment/Plan Assessment/Plan Hospital Course (Demo Recall) 1. Mook is now 2 days postop a lumbar spine surgery. His vital signs are stable and he is afebrile. His laboratory tests are acceptable. 2. He has a history of atrial fibrillation. He is in a controlled rate. He was on Xarelto preoperatively but is being held now. He will resume his Xarelto when okay with orthopedic surgery. Patient was seen by tomb maker helper, Dr. Moon . 3. He has a history of an abdominal aortic aneurysm that is 4.1 cm in diameter. 4. He can start physical therapy as tolerated. 5. He has a pressure ulcer on his lower lip. I think this is related to the ET tube causing some pressure on his lower lip. I am going to try some lidocaine 4% as a local agent to try and help control the pain. Consultation Date/Type/Reason Admit Date/Time Aug 22, 2018 at 10:01 Initial Consult Date 08/23/18 Requesting Provider: ANAMARIA JEAN MD Date/Time of Note DATE: 08/24/18 TIME: 13:29 24 HR Interval Summary Free Text/Dictation Darren is now 2 days postop a lumbar spine surgery. He is much more awake and alert. He is eating. He continues to have a lower lip ulcerated area that is painful. I think this was due to the ET tube pressuring his lower lip. Constitutional: improved Exam/Review of Systems Exam Vitals Vital Signs Date Temp Pulse Resp B/P (MAP) Pulse Ox O2 O2 Flow FiO2 Time Delivery Rate 08/24/18 Nasal 2.0 08:30 Cannula 08/24/18 98.0 95 20 130/82 95 07:52 (98) Intake and Output 08/23/18 08/23/18 08/24/18 1515:00 23:00 07:00 IntakeIntake Total 350 ml 900 ml 740 ml OutputOutput Total 330 ml 1300 ml BalanceBalance 350 ml 570 ml -560 ml Constitutional: alert, oriented, well developed Respiratory: clear to auscultation, normal air movement Cardiovascular: irregular rhythm Gastrointestinal: soft, non-tender Musculoskeletal: nl extremities to inspection Results Result Diagram: 08/24/18 0443 08/24/18 0443 Results 24hrs Laboratory Tests Test 08/24/18 04:43 White Blood Count 14.7 #H Red Blood Count 4.09 L Hemoglobin 12.0 L Hematocrit 36.3 L Mean Corpuscular Volume 88.8 Mean Corpuscular Hemoglobin 29.3 Mean Corpuscular Hemoglobin Concent 33.1 Red Cell Distribution Width 14.6 H Platelet Count 268 Mean Platelet Volume 10.0 Immature Granulocytes % 0.300 Neutrophils % 76.8 Lymphocytes % 12.2 L Monocytes % 8.6 Eosinophils % 1.6 Basophils % 0.5 Nucleated Red Blood Cells % 0.0 Immature Granulocytes # 0.050 H Neutrophils # 11.2 H Lymphocytes # 1.8 Monocytes # 1.3 H Eosinophils # 0.2 Basophils # 0.1 Nucleated Red Blood Cells # 0.0 Sodium Level 134 L Potassium Level 3.6 Chloride Level 100 Carbon Dioxide Level 30 Anion Gap 4 L Blood Urea Nitrogen 13 Creatinine 0.74 Est Glomerular Filtrat Rate mL/min Glucose Level 98 Calcium Level 8.0 L Magnesium Level 1.9 Medications Medication Current Medications Acetaminophen/ Hydrocodone Bitart ([place] (10/325)) 1 tab Q4H PRN PO .PAIN 1-5; Start 08/24/18 at 13:00 Acetaminophen/ Hydrocodone Bitart ([place] (10/325)) 2 tab Q4H PRN PO .PAIN 6-10; Start 08/24/18 at 13:00 Hydromorphone HCl (Dilaudid) 0.2 mg Q1H PRN IV .BREAKTHROUGH PAIN; Start 08/22/18 at 12:30 Ondansetron HCl (Zofran Inj) 4 mg Q6H PRN IV NAUSEA/VOMITING; Start 08/22/18 at 12:30 Bisacodyl (Dulcolax Supp) 10 mg DAILY PRN [place] .CONSTIPATION; Start 08/22/18 at 12:30 Docusate Sodium (Colace) 100 mg BID PO Last administered on 08/24/18at 09:48; Admin Dose 100 MG; Start 08/22/18 at 21:00 Al Hydrox/Mg Hydrox/Simethicone (Mag-Al Plus) 15 ml Q6H PRN PO .CONSTIPATION/DYSPEPSIA Last administered on 08/24/18at 09:53; Admin Dose 15 ML; Start 08/22/18 at 12:30 Acetaminophen (Tylenol Tab) 650 mg Q4H PRN PO LUIS OR TEMP GREATER THAN 101.3F; Start 08/22/18 at 12:30 Cyclobenzaprine HCl (Flexeril) 5 mg TID PRN PO .MUSCLE SPASM; Start 08/22/18 at 12:30 Phenol (Cepastat Lozenge) 1 lozenge PRN PRN [place] .SORE THROAT; Start 08/22/18 at 12:30 Diphenhydramine HCl (Benadryl) 25 mg Q6H PRN PO .ITCHING; Start 08/22/18 at 12:30 Diphenhydramine HCl (Benadryl) 25 mg Q6H PRN IV .ITCHING; Start 08/22/18 at 12:30 Naloxone HCl (Narcan) 0.2 mg Q2M PRN IV .RR 8 BREATHS/MIN OR LESS; Start 08/22/18 at 12:30 Miscellaneous Information 1. Hold FREEZING MACHINE OPERATOR at 1,000... FREEZING MACHINE OPERATOR IV ; Start 08/22/18 at 12:30 Diltiazem HCl (Cardizem Cd) 180 mg QPM PO Last administered on 08/23/18 21:10; Admin Dose 180 MG; Start 08/22/18 at 21:00 EZETIMIBE (Zetia) 10 mg HS PO Last administered on 08/23/18 21:10; Admin Dose 10 MG; Start 08/22/18 at 21:00 Metoprolol Succinate (Toprol Xl) 12.5 mg QAM PO Last administered on 08/24/18 09:15; Admin Dose 12.5 MG; Start 08/23/18 at 09:00 Zolpidem Tartrate (Ambien) 10 mg QHS PRN PO INSOMNIA; Start 08/22/18 at 19:30 Lidocaine (Xylocaine (Viscous)) 5 ml Q4 PRN TOP LIP SORENESS/LIP PAIN Last administered on 08/24/18 09:21; Admin Dose 5 ML; Start 08/23/18 at 11:30 ANAMARIA JEAN MD Aug 24, 2018 13:34
[2018-08-24 15:27] VITALS: BP 106/70; PULSE 83; RESP 18
--- NOTE | 2018-08-24 17:13 | CONS ---
Assessment/Plan Assessment/Plan Hospital Course (Demo Recall) Impression: - post op lumbar surgery - chronic afib- rate controlled, holding anticoag given recent surgery. restart when ok per ortho - h/o cad s/p remote pci- no current symptoms - h/o AAA- stable reports 4.1cm following with primary chainstitch binder - [place] using cpap Recommendations: - cont dilt cd 180mg daily, can take extra dose prn for sustained hr > 120s at rest - cont metop xl 12.5mg daily - follow vitals - ? not on statin, will need follow up with primary chainstitch binder - pain control per surgery - restart anticoag when safe per surgery f/u as outpt with primary chainstitch binder. please contact me if any further ?s Consultation Date/Type/Reason Admit Date/Time Aug 22, 2018 at 10:01 Initial Consult Date 08/23/18 Type of Consult cardiology Requesting Provider: ANAMARIA JEAN MD Date/Time of Note DATE: 08/24/18 TIME: 17:09 24 HR Interval Summary Free Text/Dictation no acute events. pt with faster hrs, had extra diltiazem dose. improved today 80s-100s. no palpitations, dizziness. back pain improved, drain removed Constitutional: no complaints Detailed Summary Eyes: no complaints ENT: no complaints Respiratory: no complaints Cardiovascular: no complaints Musculoskeletal: back pain Exam/Review of Systems Exam Vitals Vital Signs Date Temp Pulse Resp B/P (MAP) Pulse Ox O2 O2 Flow FiO2 Time Delivery Rate 08/24/18 98.3 83 18 106/70 94 Room Air 15:27 (82) 08/24/18 2.0 08:30 Intake and Output 08/23/18 08/23/18 08/24/18 1515:00 23:00 07:00 IntakeIntake Total 350 ml 900 ml 740 ml OutputOutput Total 330 ml 1300 ml BalanceBalance 350 ml 570 ml -560 ml Exam Constitutional: alert, oriented, well developed Psych: no complaints, nl mood/affect Head: normocephalic, atraumatic Eyes: nl conjunctiva, EOMI, nl lids ENMT: nl external ears & nose, nl nasal mucosa & septum, mucosa pink and moist Neck: supple, non-tender; No jvd, No bruits Respiratory: clear to auscultation, normal air movement Cardiovascular: nl pulses, irregular rhythm, systolic murmur (ii/vi llsb); No bruits, No diastolic murmur, No edema Gastrointestinal: soft Musculoskeletal: nl extremities to inspection, nl gait and stance, other (varicose vein) Extremities: normal pulses Neurological: BICYCLE II ASSEMBLER II-XII intact, nl mental status, nl speech, nl strength Skin: nl turgor Results Result Diagram: 08/24/18 0443 08/24/18 0443 Results 24hrs Laboratory Tests Test 08/24/18 04:43 White Blood Count 14.7 #H Red Blood Count 4.09 L Hemoglobin 12.0 L Hematocrit 36.3 L Mean Corpuscular Volume 88.8 Mean Corpuscular Hemoglobin 29.3 Mean Corpuscular Hemoglobin Concent 33.1 Red Cell Distribution Width 14.6 H Platelet Count 268 Mean Platelet Volume 10.0 Immature Granulocytes % 0.300 Neutrophils % 76.8 Lymphocytes % 12.2 L Monocytes % 8.6 Eosinophils % 1.6 Basophils % 0.5 Nucleated Red Blood Cells % 0.0 Immature Granulocytes # 0.050 H Neutrophils # 11.2 H Lymphocytes # 1.8 Monocytes # 1.3 H Eosinophils # 0.2 Basophils # 0.1 Nucleated Red Blood Cells # 0.0 Sodium Level 134 L Potassium Level 3.6 Chloride Level 100 Carbon Dioxide Level 30 Anion Gap 4 L Blood Urea Nitrogen 13 Creatinine 0.74 Est Glomerular Filtrat Rate mL/min Glucose Level 98 Calcium Level 8.0 L Magnesium Level 1.9 Imaging Imaging lumbar xray report reviewed Medications Medication Current Medications Acetaminophen/ Hydrocodone Bitart ([place] (10/325)) 1 tab Q4H PRN PO .PAIN 1-5 Last administered on 08/24/18at 16:01; Admin Dose 1 TAB; Start 08/24/18 at 13:00 Acetaminophen/ Hydrocodone Bitart ([place] (10/325)) 2 tab Q4H PRN PO .PAIN 6-10; Start 08/24/18 at 13:00 Hydromorphone HCl (Dilaudid) 0.2 mg Q1H PRN IV .BREAKTHROUGH PAIN; Start 08/22/18 at 12:30 Ondansetron HCl (Zofran Inj) 4 mg Q6H PRN IV NAUSEA/VOMITING; Start 08/22/18 at 12:30 Bisacodyl (Dulcolax Supp) 10 mg DAILY PRN [place] .CONSTIPATION; Start 08/22/18 at 12:30 Docusate Sodium (Colace) 100 mg BID PO Last administered on 08/24/18at 09:48; Admin Dose 100 MG; Start 08/22/18 at 21:00 Al Hydrox/Mg Hydrox/Simethicone (Mag-Al Plus) 15 ml Q6H PRN PO .CONSTIPATION/DYSPEPSIA Last administered on 08/24/18at 09:53; Admin Dose 15 ML; Start 08/22/18 at 12:30 Acetaminophen (Tylenol Tab) 650 mg Q4H PRN PO LUIS OR TEMP GREATER THAN 101.3F; Start 08/22/18 at 12:30 Cyclobenzaprine HCl (Flexeril) 5 mg TID PRN PO .MUSCLE SPASM; Start 08/22/18 at 12:30 Phenol (Cepastat Lozenge) 1 lozenge PRN PRN [place] .SORE THROAT; Start 08/22/18 at 12:30 Diphenhydramine HCl (Benadryl) 25 mg Q6H PRN PO .ITCHING; Start 08/22/18 at 12:30 Diphenhydramine HCl (Benadryl) 25 mg Q6H PRN IV .ITCHING; Start 08/22/18 at 12:30 Naloxone HCl (Narcan) 0.2 mg Q2M PRN IV .RR 8 BREATHS/MIN OR LESS; Start 08/22/18 at 12:30 Miscellaneous Information 1. Hold DIGITAL PHOTOGRAPHER at 1,000... DIGITAL PHOTOGRAPHER IV ; Start 08/22/18 at 12:30 Diltiazem HCl (Cardizem Cd) 180 mg QPM PO Last administered on 08/23/18at 21:10; Admin Dose 180 MG; Start 08/22/18 at 21:00 EZETIMIBE (Zetia) 10 mg HS PO Last administered on 08/23/18at 21:10; Admin Dose 10 MG; Start 08/22/18 at 21:00 Metoprolol Succinate (Toprol Xl) 12.5 mg QAM PO Last administered on 08/24/18at 09:15; Admin Dose 12.5 MG; Start 08/23/18 at 09:00 Zolpidem Tartrate (Ambien) 10 mg QHS PRN PO INSOMNIA; Start 08/22/18 at 19:30 Lidocaine (Lidocaine 4% Solution) 5 ML Q4H PRN TOP LIP SORENESS/LIP PAIN; Start 08/24/18 at 13:30 NORMA BRITT Aug 24, 2018 17:13
[2018-08-24 19:50] VITALS: BP 119/72; PULSE 80; RESP 18
[2018-08-24] MEDS: EZETIMIBE 10 MG TAB PO SCH (20:56)
[2018-08-24] MEDS: HYDROCODONE/APAP (10/325) TAB PO PRN (21:01)
[2018-08-24] MEDS: DILTIAZEM (CD) 180 MG CAP PO SCH (21:03)
[2018-08-25 02:40] VITALS: BP 115/66; PULSE 81; RESP 18
[2018-08-25] MEDS: HYDROCODONE/APAP (10/325) TAB PO PRN (05:49)
[2018-08-25 07:17] VITALS: BP 106/66; PULSE 99; RESP 20
[2018-08-25] MEDS: DOCUSATE SODIUM 100 MG CAP PO SCH (09:00)
[2018-08-25] MEDS: METOPROLOL (XL) 25 MG TAB PO SCH (09:01)
--- NOTE | 2018-08-25 09:28 | CONS ---
Assessment/Plan Assessment/Plan Hospital Course (Demo Recall) 1. Mook is now 3 days postop a lumbar spine surgery. His vital signs are stable and he is afebrile. His laboratory tests are acceptable. 2. He has a history of atrial fibrillation. He is in a controlled rate. He was on Xarelto preoperatively but is being held now. He will resume his Xarelto tonight when he goes home.. Patient was seen by refractory repairer, Dr. Moon . He can be discharged to home today if cleared by physical therapy. He will resume his routine home medication. 3. He has a history of an abdominal aortic aneurysm that is 4.1 cm in diameter. 4. He can start physical therapy as tolerated. 5. He has a pressure ulcer on his lower lip from the ET tube during surgery. He does have some pain in that area and has been treated with 4% lidocaine gel. I told him that this area will heal with time. Consultation Date/Type/Reason Admit Date/Time Aug 22, 2018 at 10:01 Initial Consult Date 08/23/18 Requesting Provider: ANAMARIA JEAN MD Date/Time of Note DATE: 08/25/18 TIME: 09:23 24 HR Interval Summary Free Text/Dictation This patient is now 3 days postop a lumbar spine surgery. He is doing better. He has some slight pain in his left buttock area. He does have an ulcer on his lower lip that started from pressure from the ET tube during surgery. He denies chest pain or shortness of breath. Constitutional: no complaints, improved Exam/Review of Systems Exam Vitals Vital Signs Date Temp Pulse Resp B/P (MAP) Pulse Ox O2 O2 Flow FiO2 Time Delivery Rate 08/25/18 98.8 99 20 106/66 93 07:17 (79) 08/24/18 Room Air 15:27 08/24/18 2.0 08:30 Intake and Output 08/24/18 08/24/18 08/25/18 1515:00 23:00 07:00 IntakeIntake Total 610 ml 200 ml OutputOutput Total 325 ml 600 ml BalanceBalance 610 ml -125 ml -600 ml Constitutional: alert, oriented, well developed Respiratory: clear to auscultation, normal air movement Cardiovascular: irregular rhythm Gastrointestinal: soft, non-tender Musculoskeletal: nl extremities to inspection Results Result Diagram: 08/25/18 0516 08/25/18 0516 Results 24hrs Laboratory Tests Test 08/25/18 05:16 White Blood Count 12.0 H Red Blood Count 3.91 L Hemoglobin 11.3 L Hematocrit 34.7 L Mean Corpuscular Volume 88.7 Mean Corpuscular Hemoglobin 28.9 L Mean Corpuscular Hemoglobin Concent 32.6 Red Cell Distribution Width 14.6 H Platelet Count 248 Mean Platelet Volume 10.1 Immature Granulocytes % 0.400 Neutrophils % 75.9 Lymphocytes % 12.0 L Monocytes % 8.5 Eosinophils % 2.8 Basophils % 0.4 Nucleated Red Blood Cells % 0.0 Immature Granulocytes # 0.050 H Neutrophils # 9.1 H Lymphocytes # 1.4 Monocytes # 1.0 H Eosinophils # 0.3 Basophils # 0.1 Nucleated Red Blood Cells # 0.0 Sodium Level 137 Potassium Level 3.8 Chloride Level 99 Carbon Dioxide Level 34 H Anion Gap 4 L Blood Urea Nitrogen 10 Creatinine 0.60 L Est Glomerular Filtrat Rate mL/min Glucose Level 90 Calcium Level 8.2 L Magnesium Level 2.1 Medications Medication Current Medications Acetaminophen/ Hydrocodone Bitart ([place] (10/325)) 1 tab Q4H PRN PO .PAIN 1-5 Last administered on 08/24/18at 16:01; Admin Dose 1 TAB; Start 08/24/18 at 13:00 Acetaminophen/ Hydrocodone Bitart ([place] (10/325)) 2 tab Q4H PRN PO .PAIN 6-10 Last administered on 08/25/18at 05:49; Admin Dose 2 TAB; Start 08/24/18 at 13:00 Hydromorphone HCl (Dilaudid) 0.2 mg Q1H PRN IV .BREAKTHROUGH PAIN; Start 08/22/18 at 12:30 Ondansetron HCl (Zofran Inj) 4 mg Q6H PRN IV NAUSEA/VOMITING; Start 08/22/18 at 12:30 Bisacodyl (Dulcolax Supp) 10 mg DAILY PRN [place] .CONSTIPATION; Start 08/22/18 at 12:30 Docusate Sodium (Colace) 100 mg BID PO Last administered on 08/25/18at 09:00; Admin Dose 100 MG; Start 08/22/18 at 21:00 Al Hydrox/Mg Hydrox/Simethicone (Mag-Al Plus) 15 ml Q6H PRN PO .CONS TIPATION/DYSPEPSIA Last administered on 08/24/18at 09:53; Admin Dose 15 ML; Start 08/22/18 at 12:30 Acetaminophen (Tylenol Tab) 650 mg Q4H PRN PO LUIS OR TEMP GREATER THAN 101.3F; Start 08/22/18 at 12:30 Cyclobenzaprine HCl (Flexeril) 5 mg TID PRN PO .MUSCLE SPASM; Start 08/22/18 at 12:30 Phenol (Cepastat Lozenge) 1 lozenge PRN PRN [place] .SORE THROAT; Start 08/22/18 at 12:30 Diphenhydramine HCl (Benadryl) 25 mg Q6H PRN PO .ITCHING; Start 08/22/18 at 12:30 Diphenhydramine HCl (Benadryl) 25 mg Q6H PRN IV .ITCHING; Start 08/22/18 at 12:30 Naloxone HCl (Narcan) 0.2 mg Q2M PRN IV .RR 8 BREATHS/MIN OR LESS; Start 08/22/18 at 12:30 Miscellaneous Information 1. Hold INFECTION CONTROL PREVENTIONIST at 1,000... INFECTION CONTROL PREVENTIONIST IV ; Start 08/22/18 at 12:30 Diltiazem HCl (Cardizem Cd) 180 mg QPM PO Last administered on 08/23/18at 21:10; Admin Dose 180 MG; Start 08/22/18 at 21:00 EZETIMIBE (Zetia) 10 mg HS PO Last administered on 08/24/18at 20:56; Admin Dose 10 MG; Start 08/22/18 at 21:00 Metoprolol Succinate (Toprol Xl) 12.5 mg QAM PO Last administered on 08/25/18at 09:01; Admin Dose 12.5 MG; Start 08/23/18 at 09:00 Zolpidem Tartrate (Ambien) 10 mg QHS PRN PO INSOMNIA; Start 08/22/18 at 19:30 Lidocaine (Lidocaine 4% Solution) 5 ML Q4H PRN TOP LIP SORENESS/LIP PAIN; Start 08/24/18 at 13:30 ANAMARIA JEAN MD Aug 25, 2018 09:28
--- NOTE | 2018-08-26 12:15 | DS ---
Date/Time of Note Date/Time of Note DATE: 08/26/18 TIME: 12:14 Discharge Summary Admission/Discharge Info Admit Date/Time Aug 22, 2018 at 10:01 Discharge Date/Time Aug 25, 2018 at 10:33 Discharge Diagnosis Lumbar fusion Patient Condition: Good Procedures Lumbar fusion Hospital Course The patient was admitted to the [facility] after undergoing lumbar fusion. The postoperative course was uncomplicated. By postoperative day 3 the patient was deemed stable for discharge with follow-up arranged with the undersigned. Home Meds Reported Medications Zolpidem Tartrate* (Zolpidem Tartrate*) 10 Mg Tablet, 10 MG PO QHS PRN for INSOMNIA, #30 TAB 08/22/18 Ezetimibe* (Zetia*) 10 Mg Tablet, 10 MG PO HS, TAB 08/22/18 Chlorthalidone* (Chlorthalidone*) 25 Mg Tablet, 12.5 MG PO DAILY, TAB 08/22/18 Diltiazem Hcl* (Diltiazem XT) 180 Mg Capsule.er, 180 MG PO QPM, #30 CAP 08/22/18 Rivaroxaban* (Xarelto*) 20 Mg Tablet, 20 MG PO WITH DINNER, TAB 08/22/18 Metoprolol Succinate* (Toprol XL*) 25 Mg Tab.sr.24h, 12.5 MG PO QAM, #30 TAB 08/22/18 Primary Care Provider Not On Staff Doctor RICKIE DAHL MD Aug 26, 2018 12:15
== END 2018-08-25 10:33 | disposition home or self-care (01) | DRG 455 ==
LOC: REC 10:01 → MS1 19:44
PROVIDERS: ADMIT Specialist; ATTEND Specialist
PROC: 0SG0071 Fusion of Lumbar Vertebral Joint with Autologous Tissue Substitute, Posterior Approach, Posterior Column, Open Approach (ICD-10-PCS; 2018-08-22)
PROC: 0ST20ZZ Resection of Lumbar Vertebral Disc, Open Approach (ICD-10-PCS; 2018-08-22)
PROC: 01NB0ZZ Release Lumbar Nerve, Open Approach (ICD-10-PCS; 2018-08-22)
PROC: 4A11X4G Monitoring of Peripheral Nervous Electrical Activity, Intraoperative, External Approach (ICD-10-PCS; 2018-08-22)
PROC: 0SG00AJ Fusion of Lumbar Vertebral Joint with Interbody Fusion Device, Posterior Approach, Anterior Column, Open Approach (ICD-10-PCS; principal; 2018-08-22 12:00)
DX: M48.062 Spinal stenosis, lumbar region with neurogenic claudication (principal); M54.16 Radiculopathy, lumbar region; M43.16 Spondylolisthesis, lumbar region; M53.2X6 Spinal instabilities, lumbar region; E78.5 Hyperlipidemia, unspecified; E66.9 Obesity, unspecified; G47.30 Sleep apnea, unspecified; I25.10 Atherosclerotic heart disease of native coronary artery without angina pectoris; I10 Essential (primary) hypertension; I48.2 Chronic atrial fibrillation; L89.899 Pressure ulcer of other site, unspecified stage; Z79.01 Long term (current) use of anticoagulants; Z68.32 Body mass index [BMI] 32.0-32.9, adult; Z87.891 Personal history of nicotine dependence; Z95.5 Presence of coronary angioplasty implant and graft
CPT/HCPCS: 72110; 80048; 83735; 85025; 86999; 88304; 97110; 97116; 97163; 97530; C1713; J0690; J1170; J1644; J1940; J2250; J2270; J2405; J3010; J3475; J3480